=== PATIENT | female | born 1965 | race Caucasian/White ===

== ENCOUNTER 2021-01-30 15:11 | Emergency (ER) | payer OTHER ==
[~2021-01-30] VITALS: Ht 167.6 cm; Wt 70.3 kg
[2021-01-30 15:15] VITALS: BP 117/83
[2021-01-30] MEDS ORDERED: MEDROLDOSEPACK PO ×4 (18:52→19:30)
[2021-01-30] MEDS ORDERED: NORCO5 PO ×2 (18:52→19:14)
[2021-01-30] MEDS ORDERED: CYCLOBENZAPRINE5 MG PO ×2 (18:52→19:14)
== END 2021-01-30 18:50 | disposition home or self-care (01) ==
LOC: ER 15:11
DX: M54.5 Low back pain (principal); W01.0XXA Fall on same level from slipping, tripping and stumbling without subsequent striking against object, initial encounter; Y93.89 Activity, other specified; Y92.89 Other specified places as the place of occurrence of the external cause; Y99.9 Unspecified external cause status